=== PATIENT | male | born 1940 | race Caucasian/White ===

== ENCOUNTER 2018-07-07 05:45 | Observation (INO) | payer OTHER ==
[2018-07-07] MEDS ORDERED: DEXAMETHASONE 10 MG/ML VIAL IVP ONE (05:50)
[2018-07-07] MEDS ORDERED: ceFAZolin 2 GM/DEXTROSE 100 ML IV ONE (05:50)
[2018-07-07] MEDS ORDERED: LR 1,000 ML IV ONE (05:51)
[2018-07-07] MEDS ORDERED: LIDOCAINE 1% 2 ML INJ ID PRN (05:51)
[2018-07-07] MEDS ORDERED: BACITRACIN ZINC 0.5 OZ OINTTUBE TP ONE (06:54)
[2018-07-07] MEDS ORDERED: LIDO/EPI 1% **Not for Epidural 20 ML MDV ONE (06:54)
--- NOTE | 2018-07-07 07:02 | PDANEPAE ---
ANE History of Present Illness L sided parotid tumor, here for removal of the mass ANE Past Medical History - Cardiovascular History Hx Hypertension: No Hx Arrhythmias: No Hx Chest Pain: No Hx Coronary Artery / Peripheral Vascular Disease: No Hx CHF / Valvular Disease: No Hx Palpitations: No Cardiovascular History Comment: high chol - Pulmonary History Hx COPD: No Hx Asthma/Reactive Airway Disease: No Hx Recent Upper Respiratory Infection: No Hx Oxygen in Use at Home: No Hx Sleep Apnea: No Sleep Apnea Screening Result - Last Documented: Negative - Neurologic History Hx Cerebrovascular Accident: No Hx Seizures: No Hx Dementia: No - Endocrine History Hx Diabetes: No Endocrine History Comment: parathyroidectomy 04/2018 - Renal History Hx Renal Disorders: No - Liver History Hx Hepatic Disorders: No - Neurological & Psychiatric Hx Hx Neurological and Psychiatric Disorders: No - Cancer History Hx Cancer: Yes Cancer History Comment: prostate ca - Congenital Disorder History Hx Congenital Disorders: No - GI History Hx Gastrointestinal Disorders: No - Other Health History Other Health History: wears glasses - Chronic Pain History Chronic Pain: No - Surgical History Prior Surgeries: 2000 prostatectomy. parathyroidectomy 04/2018 ANE Review of Systems Review of Systems: - Exercise capacity METS (RN): 4 METS ANE Patient History - Allergies Allergies/Adverse Reactions: No Known Allergies Allergy (Verified 07/01/18 10:06) - Home Medications Home Medications: Aspirin [Aspirin 81mg (*)] 81 mg PO HS 06/24/18 [Last Taken 06/30/18] Atorvastatin Calcium [Lipitor 10 mg (*)] 10 mg PO HS 06/24/18 [Last Taken 20:00] - NPO status NPO Since - Liquids (Date): 07/06/18 NPO Since - Liquids (Time): 22:00 NPO Since - Solids (Date): 07/06/18 NPO Since - Solids (Time): 18:00 - Smoking Hx Smoking Status: Current some day smoker - Family Anes Hx Family Hx Anesthesia Complications: none ANE Labs/Vital Signs - Vital Signs Blood Pressure: 113/87 Heart Rate: 114 Respiratory Rate: 18 O2 Sat (%): 94 Height: 175.26 cm Weight: 77.111 kg ANE Physical Exam - Airway Neck exam: FROM Mallampati Score: Class 2 Mouth exam: normal dental/mouth exam - Pulmonary Pulmonary: no respiratory distress, no rales or rhonchi - Cardiovascular Cardiovascular: regular rate and rhythym, no murmur, rub, or gallop - ASA Status ASA Status: II ANE Anesthesia Plan Anesthesia Plan: general endotracheal anesthesia Total IV Anesthesia: No
[2018-07-07] MEDS ORDERED: MIDAZOLAM 2 MG/2 ML VIAL IVP ONE (07:04)
[2018-07-07] MEDS ORDERED: SUGAMMADEX SODIUM 200 MG/2 ML VIAL IVP ONE (07:10)
[2018-07-07] MEDS ORDERED: ONDANSETRON 4 MG/2 ML VIAL ONE (07:10)
[2018-07-07] MEDS ORDERED: ROCURONIUM 50 MG/5 ML VIAL ONE (07:10)
[2018-07-07] MEDS ORDERED: PROPOFOL 200 MG/20 ML VIAL ONE (07:10)
[2018-07-07] MEDS ORDERED: fentaNYL 250 MCG/5 ML INJ ONE (07:10)
[2018-07-07] MEDS ORDERED: DEXAMETHASONE 4 MG/ML VIAL ONE (07:10)
[2018-07-07] MEDS ORDERED: LIDOCAINE 2% 100 MG/5 ML SYR ONE (07:10)
--- NOTE | 2018-07-07 07:15 | PDHPUP ---
History & Physical Update H&P update statement: This history and physical update is based on an assessment of the patient which was completed after admission or registration (within 24 hours), but prior to the surgery/procedure. H&P update: H&P reviewed & patient examined, no change in patient's condition since H&P completed
[2018-07-07] MEDS ORDERED: ONDANSETRON 4 MG/2 ML VIAL IVP PRN (07:21)
[2018-07-07] MEDS ORDERED: D5W LR 1,000 ML IV SCH (07:30)
[2018-07-07] MEDS ORDERED: PHENYLEPHRINE HCL 100 MCG/ML SYR ONE (08:29)
[2018-07-07] MEDS ORDERED: HYDROmorphONE/DILAUDID 2 MG/ML INJ ONE (08:30)
[2018-07-07] MEDS ORDERED: NALOXONE HCL 0.4 MG/ML INJ IVP PRN (09:56)
[2018-07-07] MEDS ORDERED: MEPERIDINE 25 MG/0.5 ML AMP IVP PRN (09:56)
[2018-07-07] MEDS ORDERED: HYDROmorphONE/DILAUDID 2 MG/ML INJ IVP PRN (09:56)
[2018-07-07] MEDS ORDERED: LR 500 ML IV PRN (09:56)
[2018-07-07] MEDS ORDERED: fentaNYL 100 MCG/2 ML INJ IVP PRN (09:56)
[2018-07-07] MEDS ORDERED: LABETALOL HCL 5 MG/ML 20 ML MDV IVP PRN (09:58)
--- NOTE | 2018-07-07 10:24 | POSTOPPROG ---
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
--- NOTE | 2018-07-07 10:29 | POSTANESTH ---
Post Anesthetic Evaluation Cardiovascular Status: Normal, Stable Respiratory Status: Normal, Stable Level of Consciousness/Mental Status: Can Participate in Eval, Moderately Sleepy Pain Control: Adequate, Prn Tx Ordered Nausea/Vomiting Control: Adequate, Prn Tx Ordered Complications Possibly Related to Anesthesia: None Noted
--- NOTE | 2018-07-07 11:01 | GOP ---
DATE OF OPERATION: 07/07/2018 SURGEON: Juan Rawls MD NURSE MANAGER: Rodriguez Pierre. ANESTHESIA: General. PREOPERATIVE DIAGNOSIS: Left parotid gland tumors. POSTOPERATIVE DIAGNOSIS: Left parotid gland tumors. PROCEDURE PERFORMED: 1. Left total parotidectomy with facial nerve dissection. 2. Facial nerve monitoring x2 hours. FINDINGS: The tumors were approximately 1/2 x 1/2 x 1/2 cm in size, both the superficial and deep on es. The facial nerve was identified and preserved. Stimulation of the facial nerve at the end of e procedure showed electronic impulses to the muscles, but not visible motion of the muscle. Of note , I used a low power of 0.5 milliamps for the stimulation. SPECIMENS: Left parotid gland tissue. 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 DESCRIPTION OF PROCEDURE: Patient was taken to the operating room, positively identified, placed on monitors, and general endotracheal anesthesia was induced. The table was then turned slightly. The patient was prepped and draped in the normal sterile fashion. A modified Augustus incision was marked o ut and infiltrated with 5 cc of 1% lidocaine with 1:100,000 of epinephrine. The 2-channel [facility] facial nerve monitor was set up with the centers at the orbicularis oculi and orbicularis auris muscles. At this point, the skin was sharply incised. Dissection was then carried down to the parotid fascia. An anterior skin flap was raised. Dissection then carried inferiorly to the anterior border of the sternocleidomastoid muscle. A wide plane of dissection was maintained. Dissection was continued to be carried deeper as the parotid was rolled anteriorly. The posterior belly of the digastric muscle was identified. Dissection was then swept up superiorly traveling just over the perichondrium of e tragus. The main branch of the facial nerve was identified. I then dissected along the main branc hes rolling out the tumor off the facial nerve and mostly exposed the upper trunk. The deeper tumor in the deep lobe was underneath the main trunk just past PES. The upper trunk of the facial nerve wa s carefully dissected off, and the tumor was slipped from underneath the facial nerve. Once the 2 tu mors of the surrounding parotid tissue were removed, the wound was irrigated with sterile saline solu tion. Hemostasis was assured. A drain was placed through a separate stab incision, secured with a d rain stitch. The wound was then closed with interrupted 4-0 Monocryl suture followed by a 5-0 Prolene to the infer ior half of the incision and 5-0 fast-absorbing gut suture superiorly. Following this, a pressure dr yanet was placed, and the case was terminated. The Ancef was discontinued. The patient tolerated t he procedure well. DRAINS: 10-[place] round drain. COMPLICATIONS: None. /[id number]/MODL
[2018-07-07] MEDS: OXYCODONE/APAP 5/325 TAB PO PRN (14:44)
--- NOTE | 2018-07-07 16:31 | ASMTCMCOM ---
CM Note CM Note Notes: Spoke w/RN, pt admitted for a scheduled sx. He lives at home with his and is otherwise independent. Should dc home when medically stable, CM available for any changes. DC Plan: Independent Date Signed: 07/07/2018 04:30 PM Electronically Signed By:Jocelynn Kumari RN
--- NOTE | 2018-07-07 17:28 | SOAPPROG ---
SOAP Progress Note Assessment/Plan: Assessment: Post op total parotidectomy with facial nerve dissection Pt doing well. Facial nerve function is intact. No bleeding Plan: Remove drain tomorrow morning and plan for d/c 07/07/18 17:25 Subjective: Pt reports to doing well. Pain is controlled. Objective: Vital Signs Temp Pulse Resp BP Pulse Ox 36.8 C 85 16 117/72 92 07/07/18 14:56 07/07/18 14:56 07/07/18 14:56 07/07/18 14:56 07/07/18 14:56 07/06/18 07/07/18 07/08/18 05:59 05:59 05:59 Intake Total 1999 Output Total 10 Balance 1989 Pt is resting comfortably in bed. Drain is in place. Dressing in place. No bleeding - Pending Discharge Pending Discharge Within 24 Hours: Yes Pending Discharge Date: 07/08/18 Pending Discharge Time: 11:00 ICD10 Worksheet Patient Problems: Problems Problem Status Onset Parotid mass Acute - ICD10 Problem Qualifiers (1) Parotid mass
[2018-07-08 09:19] VITALS: BP 119/79
[2018-07-08] MEDS: OXYCODONE/APAP 5/325 TAB PO PRN (09:28)
--- NOTE | 2018-07-08 11:40 | PDDCSUM ---
Discharge Summary Discharge Summary: pt s/p parotidectomy yesterday. stable no complications drain removed. F/u 1 week for suture removal.
--- NOTE | 2018-07-08 11:40 | SOAPPROG ---
SOAP Progress Note Assessment/Plan: pt s/p parotidecotmy yesterday. Doing well. drain removed. Incision c/d/i. New dressign applied. Plan:Discharge today. F/u 1 week for suture removal. call if any swelling. apply ointment. 07/08/18 11:39 Objective: Vital Signs Temp Pulse Resp BP Pulse Ox 36.6 C 80 18 119/79 94 07/08/18 09:16 07/08/18 09:16 07/08/18 09:16 07/08/18 09:16 07/08/18 09:16 07/07/18 07/08/18 07/09/18 05:59 05:59 05:59 Intake Total 2300 Output Total 135 Balance 2165 ICD10 Worksheet Patient Problems: Problems Problem Status Onset Parotid mass Acute
== END 2018-07-08 11:30 | disposition home or self-care (01) ==
LOC: F3E 05:45
PROVIDERS: ADMIT Otolaryngology; ATTEND Otolaryngology
PROC: 0CT90ZZ Resection of Left Parotid Gland, Open Approach (ICD-10-PCS; principal; 2018-07-07 07:15)
DX: D11.0 Benign neoplasm of parotid gland (principal); K09.8 Other cysts of oral region, not elsewhere classified; R59.9 Enlarged lymph nodes, unspecified
CPT/HCPCS: 42420; 88307; 88341; 88342; G0378; J0690; J1100; J1170; J2001; J2250; J2370; J2405; J2704; J3010